=== PATIENT | male | born 1990 | race Caucasian/White ===

== ENCOUNTER 2018-12-26 10:07 | Observation (INO) | payer BC, SELFPAY ==
[2018-12-26] MEDS ORDERED: Ondansetron PF 4 MG/2 ML Vial ONE (10:35)
[2018-12-26 10:43] LABS: #Basophils 0.1 thou/uL (0.0-0.2); #Eosinphils 0.1 thou/uL (0.0-0.7); #Neutrophils 9.2 thou/uL (1.40-6.50); %Basophils 0.5 % (0.0-1.0); %Eosinophils 0.5 % (0.0-10.0); %Monocytes 7.9 % (0.0-10.0); %Neutrophils 75.1 % (42.0-75.0); Hemoglobin 14.4 g/dL (14.0-18.0); Mean Corpuscular HGB CONC 33.4 g/dL (32.0-36.0); Mean Corpuscular Volume 92.6 fL (78.0-98.0); Mean Platelet Volume 7.8 fL (7.4-10.4); Platelet Count 316 thou/uL (130-400); RBC Distribution Width 11.5 % (11.5-14.5); Red Blood Cell (RBC) Count 4.67 mill/uL (4.70-6.10); White Blood Cell (WBC) Count 12.3 thou/uL (4.8-10.8)
[2018-12-26 11:00] LABS: Lactic Acid 2.1 mmol/L (0.5-2.2)
[2018-12-26 11:06] LABS: ALT (SGPT) 31 U/L (8-55); AST (SGOT) 36 U/L (5-34); Acetaminophen Less than 6.0 mcg/mL (10.0-30.0); Albumin 4.5 g/dL (3.5-5.0); Alcohol Less than 10 mg/dL (Less than 10); Alkaline Phosphatase 53 U/L (40-150); Anion Gap 17 mmol/L (10-20); BUN (Urea Nitrogen) 13 mg/dL (8.9-20.6); Bilirubin, Total 1.5 mg/dL (0.2-1.2); Calc. Creatinine Clearance 0 mL/min (70-130); Calcium 9.6 mg/dL (7.8-10.44); Carbon Dioxide 18 mmol/L (22-29); Chloride 103 mmol/L (98-107); Estimated GFR-MDRD 81; Globulin 2.6 g/dL (2.4-3.5); Glucose 292 mg/dL (70-105); Lipase 25 U/L (8-78); Potassium 4.3 mmol/L (3.5-5.1); Protein, Total 7.1 g/dL (6.0-8.3); Salicylate Less than 8.0 mg/dL (15.0-30.0); Sodium 134 mmol/L (136-145)
[2018-12-26] MEDS ORDERED: Ketamine 50 MG/ML (10ML VIAL) ONE (11:16)
--- NOTE | 2018-12-26 12:07 | CT ---
CT head without contrast: Multiple axial tomograms obtained through the head without IV enhancement. INDICATIONS: Change in mental status COMPARISON: None FINDINGS: Ventricles have normal size and position. No evidence of intracranial mass, hemorrhage, edema, or infarct. Visualized sinuses and mastoids appear clear. Bony calvarium appears unremarkable. IMPRESSION: No acute finding
--- NOTE | 2018-12-26 12:12 | CT ---
CT CERVICAL SPINE WITH CORONAL AND SAGITTAL REFORMATIONS AND NO IV CONTRAST: HISTORY: Injury, neck pain FINDINGS: No fracture, subluxation or facet malalignment is identified. No prevertebral soft tissue swelling is apparent. The visualized lung apices are unremarkable. IMPRESSION: No CT evidence for fracture or traumatic subluxation.
--- NOTE | 2018-12-26 12:17 | CT ---
CT FACIAL BONES WITH CORONAL AND SAGITTAL REFORMATIONS: HISTORY: Trauma. Facial pain FINDINGS: No facial bone fracture is seen. No temporomandibular dislocation is identified. There is a small jennifer yp/mucus retention cyst in the right maxillary sinus. No air-fluid levels are seen in the paranasal sinuses. The mastoid air cells are well aerated. There is right-sided periorbital soft tissue swellin g. IMPRESSION: No CT evidence of facial bone fracture.
--- NOTE | 2018-12-26 12:24 | CT ---
EXAM: CT of the chest with IV contrast CT of the abdomen and pelvis with IV contrast Limited CT of the thoracic and lumbar spine with IV contrast HISTORY: Trauma with chest pain, abdominal pain, and back pain. COMPARISON: None FINDINGS: CT CHEST: Mediastinum: Heart is normal in size without focal cardiac abnormality. No hilar or mediastinal lymph adenopathy. No mediastinal hemorrhage. Lungs: No lobar consolidation/pulmonary contusions are seen. There is a 11 mm solid nodule in the rig ht middle lobe. Pleural space: No pneumothorax or pleural effusion. Osseous structures: No evidence of acute fracture. Thoracic chest wall: Unremarkable. CT ABDOMEN/PELVIS: Liver: Unremarkable. Gallbladder: Unremarkable. Adrenal glands: Unremarkable. Kidneys: Unremarkable. Spleen: Unremarkable. Pancreas: Unremarkable. Pelvis: No focal mass or abnormality. Reproductive organs: Within normal limits for the patient's age. Peritoneum: No free air or free fluid. Retroperitoneum: No lymphadenopathy. Osseous structures: No acute fracture identified. LIMITED CT OF THE THORACIC AND LUMBAR SPINE: No fracture or dislocation is seen. No prevertebral soft tissue swelling is present. IMPRESSION: 1. No acute findings in the chest, abdomen, or pelvis. 2. No evidence of acute osseous abnormality of the thoracic or lumbar spine. 3. Indeterminate 11 mm right middle lobe nodule. This should be evaluated with PET scan.
[2018-12-26 12:55] LABS: Bilirubin Negative (Negative); Blood, Urine Negative (Negative); Clarity CLEAR (Clear); Glucose, Urine (Dipstick) >=1000 mg/dL (Negative); Leukocyte Negative (Negative); Nitrite Negative (Negative); Protein, Urine (Dipstick) Negative (Neg-Trace); Specific Gravity, Urine 1.041 (1.002-1.036); Urobilinogen 0.2 mg/dL (0.2-1.0); pH, Urine 5.5 (5.0-9.0)
[2018-12-26 13:05] LABS: Amphetamine Not Detected (NotDetected); Barbiturates Screen Not Detected (NotDetected); Benzodiazepine Screen Not Detected (NotDetected); Cocaine Metabolite Screen Not Detected (NotDetected); Medtox Reader # READER 1; Methadone Not Detected (NotDetected); Methamphetamine Not Detected (NotDetected); Opiate Screen Not Detected (NotDetected); Oxycodone Screen Not Detected (NotDetected); Phencyclidine (PCP) Not Detected (NotDetected); THC/Cannabinoid Screen Not Detected (NotDetected); Tricyclic Screen Not Detected (NotDetected)
[2018-12-26 13:06] LABS: Medtox Control Line Valid? VALID (VALID)
[2018-12-26] MEDS ORDERED: Senokot S 8.6-50 MG TAB PO PRN (16:33)
[2018-12-26] MEDS ORDERED: HYDROcodone/Acetaminophen 5/325 mg Tablet PO PRN (16:33)
[2018-12-26] MEDS ORDERED: Acetaminophen 325 MG TAB PO PRN (16:33)
[2018-12-26] MEDS ORDERED: Dextrose 50% Abboject 50 ML SYRINGE SLOW IVP PRN (16:34)
[2018-12-26] MEDS ORDERED: Dextrose 5% in Water 1,000 ML IV PRN (16:34)
[2018-12-26] MEDS ORDERED: HumaLOG 300 UNITS/3 ML VIAL SC PRN ×2 (16:34)
[2018-12-26] MEDS ORDERED: Lorazepam 1 MG TAB PO PRN (16:37)
[2018-12-26 17:55] VITALS: BMI 39.3
[2018-12-26] MEDS ORDERED: Ondansetron PF 4 MG/2 ML Vial IVP PRN (18:04)
[2018-12-26] MEDS ORDERED: Ondansetron ODT 4 MG TAB SL PRN (18:04)
[2018-12-26] MEDS: Famotidine 20 MG TAB PO SCH (19:37)
[2018-12-26] MEDS: Sodium Chloride 0.9% 1,000 ML IV SCH (19:37)
--- NOTE | 2018-12-27 00:48 | HP ---
PRIMARY CARE PHYSICIAN: None. CHIEF COMPLAINT: Altered mental status, combative, hyperglycemia. HISTORY OF PRESENT ILLNESS: Mr. Blackman is a 28-year-old male, who reported to the emergency room via EMS after he was found walking around [employer]. 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 Initially, when EMS was called, the patient was very combative, confused. The patient was given several medications to try and calm him down, was eventually restrained, so they could perform some CT scans, checked for injuries, was given 2 L of normal saline, some Zofran, was given Versed by EMS and then was given 50 mg of ketamine. By the time of hospitalist's interview, the patient was able to give us somewhat of events leading up to his admission, but does respond to questions appropriately. The patient does have a history of diabetes type 2, takes Humalog, he said 32 units b.i.d.. On his lab values, he was found to have a white blood cell count of 12.3. Sodium of 134 and glucose of 292. CK of 2545. The patient will be admitted to the observation unit for further management. Continue IV hydration. Recheck CK. PAST MEDICAL HISTORY: Diabetes, type 2. PAST SURGICAL HISTORY: None. PSYCH HISTORY: None. Denies any family history that contributes to this particular admission. ALLERGIES: TO PENICILLIN. MEDICATIONS: Humalog 32 units b.i.d. REVIEW OF SYSTEMS: The patient denies any pain. Denies any chest pain, shortness of breath, abdominal pain. Reports that the abrasions to his head and face, left shoulder are not painful. He is able to follow commands. All other systems are reviewed and are negative unless mentioned in the HPI. PHYSICAL EXAMINATION: VITAL SIGNS: Blood pressure 126/74, pulse is 76, respirations 18, pO2 saturations are 99% on room air, and temperature is 98.2. CONSTITUTIONAL: The patient is still somewhat somnolent, but does arouse easily. Does answer some questions, knows where he is, year, President. He is alert and oriented x3. HEENT: Head is normocephalic. He does have some abrasions and bruising noted to face, primarily right sided and left shoulder. Eyes, eyelids are normal to inspection. Pupils are equally round and reactive to light. ENT, mouth exam is normal. Mucous membranes are moist. NECK: Normal range of motion. Trachea is midline. RESPIRATORY: Chest, breath sounds are clear. Chest movement is symmetrical. CARDIOVASCULAR: Regular heart rate and rhythm. Heart sounds are normal. ABDOMEN: Soft and nontender. BACK: Normal range of motion. No tenderness. Upper extremity, motor strength is normal. Sensation is intact. Radial pulses are normal. Lower extremity, normal inspection. Normal range of motion. Pedal pulses are equal bilaterally. NEUROLOGIC: The patient is oriented to person, place, and time. Somewhat somnolent, but does awake easily. Speech is normal. SKIN: Warm, dry, and normal in color. There are abrasions noted to face, head, and left shoulder. PSYCHIATRIC: He has a normal affect. PERTINENT LABORATORY DATA: White blood cell count is 12.3, hemoglobin 14.4, hematocrit is 43.2, and platelet count is 316. Sodium is 134, potassium 4.3, chloride 103, carbon dioxide is 18, gap is 17, BUN is 13, and creatinine is 1.10. Estimated GFR is 81. Glucose is 292. Lactic acid 2.1, calcium 9.6, and bilirubin is 1.5. AST 36, ALT 31, and alkaline phosphatase 53. CK is 2545. Lipase is 25. Urine specific gravity 1.041, positive for 1000+ glucose and 80 ketones. Toxicology negative. IMAGING STUDIES: CT of the abdomen, pelvis, and chest, unremarkable. Cervical spine, no CT evidence of fracture or traumatic subluxation. Facial bones, no CT evidence of any facial bone fracture. Brain CT, no acute findings. EKG shows sinus tach, beats per minutes 109, possible left atrial enlargement. ASSESSMENT AND PLAN: 1. Altered mental status, unknown etiology, improving. We will continue IV hydration. 2. Rhabdomyolysis. We will continue IV hydration. We will check CK q.8. 3. Diabetes. We will check glucose a.c. and h.s., added a sliding scale for coverage. Once home medications will be verified, we will continue home medication regimen. 4. Deep venous thrombosis and gastrointestinal prophylaxis will be started. 5. Hospital course will be dependent on clinical findings. Job ID: [id number]
[2018-12-27 04:11] LABS: #Basophils 0.1 thou/uL (0.0-0.2); #Eosinphils 0.2 thou/uL (0.0-0.7); #Monocytes 0.8 thou/uL (0.11-0.59); #Neutrophils 5.3 thou/uL (1.40-6.50); %Basophils 0.6 % (0.0-1.0); %Eosinophils 2.6 % (0.0-10.0); %Lymphocytes 31.6 % (21.0-51.0); %Neutrophils 56.3 % (42.0-75.0); Hemoglobin 13.7 g/dL (14.0-18.0); Mean Corpuscular HGB CONC 33.5 g/dL (32.0-36.0); Mean Corpuscular Hemoglobin 31.2 pg (27.0-31.0); Mean Platelet Volume 7.3 fL (7.4-10.4); Platelet Count 297 thou/uL (130-400); RBC Distribution Width 11.4 % (11.5-14.5); Red Blood Cell (RBC) Count 4.38 mill/uL (4.70-6.10); White Blood Cell (WBC) Count 9.3 thou/uL (4.8-10.8)
[2018-12-27] MEDS: Sodium Chloride 0.9% 1,000 ML IV SCH ×2 (04:11→15:54)
[2018-12-27 04:27] LABS: Anion Gap 14 mmol/L (10-20); BUN (Urea Nitrogen) 11 mg/dL (8.9-20.6); Calc. Creatinine Clearance 180 mL/min (70-130); Carbon Dioxide 23 mmol/L (22-29); Chloride 104 mmol/L (98-107); Estimated GFR-MDRD 87; Glucose 231 mg/dL (70-105); Potassium 4.3 mmol/L (3.5-5.1); Sodium 137 mmol/L (136-145)
[2018-12-27] MEDS: Famotidine 20 MG TAB PO SCH (08:41)
[2018-12-27 11:07] VITALS: BP 120/82; TEMP 98.2
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
== END 2018-12-27 17:01 | disposition home or self-care (01) ==
LOC: ERS 10:07 → T4-A 14:15
PROVIDERS: ADMIT Internal Medicine; ATTEND Internal Medicine
DX: R41.0 Disorientation, unspecified (principal); E11.65 Type 2 diabetes mellitus with hyperglycemia; M62.82 Rhabdomyolysis; R91.1 Solitary pulmonary nodule; S00.81XA Abrasion of other part of head, initial encounter; S40.212A Abrasion of left shoulder, initial encounter; Z88.0 Allergy status to penicillin; Z79.4 Long term (current) use of insulin
CPT/HCPCS: 36415; 36416; 70450; 70486; 71260; 72125; 74177; 80048; 80053; 80306; 80307; 81003; 82550; 83605; 83690; 85025; 93005; 96361; 96372; 96374; G0378; J2405